=== PATIENT | female | born 1940 | race Caucasian/White ===

== ENCOUNTER → 2017-11-10 | Outpatient (CLI) | payer OTHER | LOC: FIMAGING 14:24 | PROVIDERS: ATTEND Family Medicine | DX: Z13.820 Encounter for screening for osteoporosis (principal); M81.0 Age-related osteoporosis without current pathological fracture; M85.88 Other specified disorders of bone density and structure, other site; Z78.0 Asymptomatic menopausal state ==

== ENCOUNTER 2019-02-01 15:41 | Emergency (ER) | payer OTHER ==
--- NOTE | 2019-02-01 16:53 | EDPHY ---
H & P Time Seen by Provider: 02/01/19 16:12 HPI/ROS: Chief complaint. Fall HPI. 78-year-old female with mechanical trip and fall on uneven step today. She fell she hit face. Did not lose consciousness. Denies neck or back pain. She complains of pain to her right shoulder and right hand. She sustained laceration to her upper lip and the palm of her right hand. She is not on blood thinners. No chest pain or shortness of breath. No abdominal pain. No injury to hips or legs. She has been ambulatory since the injury. ROS 10 systems were reviewed and negative with the exception of the elements mentioned in the history of present illness Past Medical/Surgical History: Dementia, hypertension, dyslipidemia Social History: , nonsmoker, no alcohol Smoking Status: Never smoked Physical Exam: General Appearance: Alert well-developed female mild distress vital signs are stable Eyes: Pupils equal and round no pallor or injection. ENT, tympanic membranes are normal. Pharynx without injection. She chip the left upper incisor. She has a stellate laceration to the upper lip. Respiratory: There are no retractions, lungs are clear to auscultation. Cardiovascular: Regular rate and rhythm. Gastrointestinal: Abdomen is soft and nontender, no masses, bowel sounds normal. Neurological: Awake and alert, sensory and motor exams grossly normal. Skin: 2 cm laceration left palm at the base of the 5th finger Musculoskeletal: Neck is nontender to palpation. No T, L, S spine tenderness Extremities symmetrical, full range of motion. Pain to right shoulder without deformity. Pain to right hand without deformity. Psychiatric: Patient is oriented X 3, there is no agitation. Constitutional: Initial Vital Signs Temperature (C) 36.5 C 02/01/19 15:53 Heart Rate 73 02/01/19 15:53 Respiratory Rate 18 02/01/19 15:53 Blood Pressure 164/73 H 02/01/19 15:53 O2 Sat (%) 97 02/01/19 15:53 O2 Delivery Mode Room Air Allergies/Adverse Reactions: codeine [Codeine] Allergy (Verified 02/01/19 15:58) Home Medications: Medication Instructions Recorded Atorvastatin Calcium [Lipitor 10 0 mg PO DAILY 06/24/11 mg] Lisinopril [Prinivil] 0 mg PO 06/24/11 Aricept 02/01/19 Medical Decision Making - Diagnostics Imaging Results: Imaging Impressions Hand X-Ray 02/01/19 16:19 Impression: Degenerative changes within the right hand, without acute fracture identified. Shoulder X-Ray 02/01/19 16:19 Impression: Negative for acute injury. X-ray shoulder and hand interpreted by me is negative for fracture Procedures: Procedure: Laceration repair. Verbal consent was obtained from the patient. The 2 cm laceration on the upper lip was anesthetized in the usual fashion. The wound was irrigated, draped and explored to its base with a gloved finger. There were no deep structures involved. No tendon injury was identified. The wound was repaired with 6 5-0 prolene sutures. The wound repair was simple. The procedure was performed by myself. Procedure: Laceration repair. Verbal consent was obtained from the patient. The 2 cm laceration on the palm right hand was anesthetized in the usual fashion. The wound was irrigated, draped and explored to its base with a gloved finger. There were no deep structures involved. No tendon injury was identified. The wound was repaired with 8 4-0 prolene sutures. The wound repair was simple. The procedure was performed by myself. ED Course/Re-evaluation: Patient remains stable. No evidence for concussion or closed head injury Patient, her , and I discussed treatment plan including criteria for return importance of follow-up and further evaluation. They expressed understanding and agreement Differential Diagnosis: I considered closed head injury, concussion, facial fractures, fractures or dislocation of shoulder and hand. I also considered retained foreign body Departure - Departure Disposition: Home, Routine, Self-Care Clinical Impression: Lip laceration Qualifiers: Encounter type: initial encounter Qualified Code(s): S01.511A - Laceration without foreign body of lip, initial encounter Hand laceration Qualifiers: Encounter type: initial encounter Foreign body presence: without foreign body Laterality: right Qualified Code(s): S61.411A - Laceration without foreign body of right hand, initial encounter Dental trauma Qualifiers: Encounter type: initial encounter Qualified Code(s): S09.93XA - Unspecified injury of face, initial encounter Condition: Good Instructions: Care For Your Stitches (ED), Acute Dental Trauma (ED) Additional Instructions: Ice to sore areas next 24 hr especially upper lip and right hand. Tylenol 650 mg every 4-6 hours as needed for discomfort You may shower with your stitches in Return for signs of infection Stitches out of the lip in 5 days, stitches out of the hand in 10 days Follow-up with dentist for chipped tooth Return for worsening symptoms Referrals: Idania Goodman MD [Primary Care Provider] - 5-7 days, call for appt.
[2019-02-01 17:46] VITALS: BP 164/87
== END 2019-02-01 17:55 | disposition home or self-care (01) ==
DX: S01.511A Laceration without foreign body of lip, initial encounter (principal); S61.411A Laceration without foreign body of right hand, initial encounter; I10 Essential (primary) hypertension; F03.90 Unspecified dementia, unspecified severity, without behavioral disturbance, psychotic disturbance, mood disturbance, and anxiety; W10.1XXA Fall (on)(from) sidewalk curb, initial encounter; Y93.01 Activity, walking, marching and hiking; Y92.480 Sidewalk as the place of occurrence of the external cause